=== PATIENT | male | born 1945 | race Caucasian/White ===

== ENCOUNTER → 2019-05-13 | Outpatient (CLI) | payer MEDICARE ==
[~2019-05-13] MED LIST: ALLOPURINOL300 MG PO; ASPIR 8181 MG PO; ATENOLOL-CHLOR1 EACH PO; FISH OIL PO; MULTIVITAMINS1 EAC7 PO; TRICOR145 MG PO
== END ==
LOC: SLEEP 20:38
PROVIDERS: ATTEND Internal Medicine
DX: G47.33 Obstructive sleep apnea (adult) (pediatric) (principal)
CPT/HCPCS: 95810

== ENCOUNTER 2024-03-05 00:19 | Inpatient (IN) | payer MEDICARE ==
[~2024-03-05] VITALS: Ht 170.2 cm; Wt 127.9 kg
[2024-03-05] VITALS (18 sets, daily range): BP systolic 98–139; BP diastolic 49–79; PULSE 41–108; RESP 12–21; TEMP 97.9–98.3; O2SAT 94–99
[2024-03-05] MEDS ORDERED: SODIUM CHLORIDE 0.9% 1000ML 1,000 ML ONE (01:32)
[2024-03-05] MEDS ORDERED: ELIQUIS5 MG PO (01:58)
[2024-03-05] MEDS ORDERED: LOSARTAN POTASS25 MG PO (02:01)
[2024-03-05] MEDS ORDERED: ATENOLOL-CHLOR1 EAC1 (02:01)
[2024-03-05] MEDS ORDERED: FENOFIBRATE145 MG PO (02:02)
[2024-03-05] MEDS ORDERED: JARDIANCE25 MG (02:03)
[2024-03-05] MEDS: SODIUM CHLORIDE 0.9% 1000ML 1,000 ML IV SCH (02:11)
[2024-03-05 06:31] LABS: BASOPHILS # (AUTO) 0.1 (0.0-0.1); BASOPHILS % 0.6 % (0.0-1.0); EOSINOPHILS # (AUTO) 0.1 (0.0-0.4); EOSINOPHILS % 0.7 % (0.0-6.0); HEMATOCRIT 43.2 % (38.2-49.6); HEMOGLOBIN 14.4 g/dL (14.0-18.0); LYMPHOCYTES # (AUTO) 1.9 (1.0-3.2); LYMPHOCYTES % 22.9 % (18.0-39.1); MEAN CORPUSCULAR HEMOGLOBIN 31.4 pg (28-32); MEAN CORPUSCULAR HGB CONC 33.3 g/dL (31-35); MEAN CORPUSCULAR VOLUME 94.1 fL (81-99); MONOCYTES # (AUTO) 0.9 (0.2-0.8); MONOCYTES % 10.6 % (4.4-11.3); NEUTROPHILS # (AUTO) 5.2 (2.1-6.9); NEUTROPHILS % 64.5 % (38.7-80.0); PLATELET COUNT 209 x10e3/uL (140-360); RED BLOOD COUNT 4.59 x10e6/uL (4.3-5.7); RED CELL DISTRIBUTION WIDTH 13.9 % (11.7-14.4); WHITE BLOOD COUNT 8.08 x10e3/uL (4.8-10.8)
[2024-03-05 06:54] LABS: CALCIUM IONIZED 1.2 mmol/L (1.09-1.30)
[2024-03-05 07:01] LABS: ALBUMIN 3.4 g/dL (3.5-5.0); ALBUMIN/GLOBULIN RATIO 1.2 (0.8-2.0); ANION GAP 17.3 mmol/L (8-16); BILIRUBIN,TOTAL 0.7 mg/dL (0.2-1.2); CALCIUM 9.3 mg/dL (8.4-10.2); CREATININE, SERUM 0.92 mg/dL (0.72-1.25); TOTAL PROTEIN 6.2 g/dL (6.5-8.1)
[2024-03-05 07:05] LABS: POTASSIUM 3.3 mmol/L (3.5-5.1)
[2024-03-05] MEDS ORDERED: HYDRALAZINE HCL 20 MG/ML VIAL IV PRN (11:15)
[2024-03-05] MEDS: GENTAMICIN SULFATE 40 MG/ML 2 ML VIAL ONE ×2 (16:22→16:23)
[2024-03-05] MEDS: SODIUM CHLORIDE 0.9% 250ML 250 ML ONE (16:23)
[2024-03-05] MEDS: SODIUM CHLORIDE 0.9% 500ML 500 ML ONE ×2 (16:23→16:24)
[2024-03-05] MEDS: IOPAMIDOL 610MG/1ML 300 MG/ML VIAL IV ONE (16:23)
[2024-03-05] MEDS: MIDAZOLAM HCL 2 MG/2 ML VIAL ONE (16:23)
[2024-03-05] MEDS: FENTANYL CITRATE/PF 100MCG/2 ML INJ ONE (16:23)
[2024-03-05] MEDS: SODIUM CHLORIDE 0.9% 1000ML 1,000 ML ONE (16:23)
[2024-03-05] MEDS: LIDOCAINE HCL 2% LOCAL 20 ML VIAL ONE (16:23)
[2024-03-05] MEDS: Vancomycin IV 1 GM VIAL ONE (16:23)
[2024-03-05] MEDS: DIPHENHYDRAMINE HCL INJ 50 MG/ML VIAL ONE (16:24)
[2024-03-06] VITALS (7 sets, daily range): BP systolic 110–166; BP diastolic 68–97; PULSE 57–94; RESP 15–22; TEMP 98; O2SAT 95–97
[2024-03-06 05:01] LABS: BASOPHILS # (AUTO) 0.1 (0.0-0.1); BASOPHILS % 0.7 % (0.0-1.0); EOSINOPHILS # (AUTO) 0.1 (0.0-0.4); EOSINOPHILS % 1.3 % (0.0-6.0); HEMOGLOBIN 14.1 g/dL (14.0-18.0); LYMPHOCYTES # (AUTO) 1.3 (1.0-3.2); LYMPHOCYTES % 12.8 % (18.0-39.1); MEAN CORPUSCULAR HEMOGLOBIN 32.7 pg (28-32); MEAN CORPUSCULAR HGB CONC 35.3 g/dL (31-35); MEAN CORPUSCULAR VOLUME 92.8 fL (81-99); MONOCYTES % 9.9 % (4.4-11.3); NEUTROPHILS # (AUTO) 7.7 (2.1-6.9); PLATELET COUNT 214 x10e3/uL (140-360); RED BLOOD COUNT 4.31 x10e6/uL (4.3-5.7); RED CELL DISTRIBUTION WIDTH 13.8 % (11.7-14.4); WHITE BLOOD COUNT 10.21 x10e3/uL (4.8-10.8)
[2024-03-06 05:30] LABS: ALBUMIN 3.4 g/dL (3.5-5.0); ALBUMIN/GLOBULIN RATIO 1.1 (0.8-2.0); ANION GAP 16.7 mmol/L (8-16); BILIRUBIN,TOTAL 0.9 mg/dL (0.2-1.2); CALCIUM 9.3 mg/dL (8.4-10.2); CREATININE, SERUM 0.86 mg/dL (0.72-1.25); MAGNESIUM 1.6 MG/DL (1.3-2.1); PHOSPHORUS 2.9 MG/DL (2.3-4.7); POTASSIUM 3.7 mmol/L (3.5-5.1); TOTAL PROTEIN 6.4 g/dL (6.5-8.1)
[2024-03-06 05:53] LABS: FREE THYROXINE INDEX 2.3162 (1.4-3.8); T3 UPTAKE 32.26 % (22.5-37.0); T4 (THYROXINE) 7.18 ug/dL (4.5-10.9); THYROID STIMULATING HORMONE 1.029 uIU/mL (0.350-4.940)
[2024-03-06] MEDS ORDERED: HYGROTON25 MG PO (14:44)
[2024-03-06] MEDS ORDERED: MINOCYCLINE HCL 50 MG CAP PO SCH (21:00)
== END 2024-03-06 16:32 | disposition home or self-care (01) | DRG 243 ==
LOC: ICU 00:51 → MED/SURG2 03-06 14:00
PROVIDERS: ADMIT Family Medicine Adult Medicine; ATTEND Family Medicine Adult Medicine
PROC: 0JH606Z Insertion of Pacemaker, Dual Chamber into Chest Subcutaneous Tissue and Fascia, Open Approach (ICD-10-PCS; principal; 2024-03-05)
PROC: 02H63JZ Insertion of Pacemaker Lead into Right Atrium, Percutaneous Approach (ICD-10-PCS; 2024-03-05)
PROC: 02HK3JZ Insertion of Pacemaker Lead into Right Ventricle, Percutaneous Approach (ICD-10-PCS; 2024-03-05)
DX: I49.5 Sick sinus syndrome (principal); I48.20 Chronic atrial fibrillation, unspecified; Z68.41 Body mass index [BMI] 40.0-44.9, adult; I10 Essential (primary) hypertension; E66.01 Morbid (severe) obesity due to excess calories; E78.00 Pure hypercholesterolemia, unspecified; I44.7 Left bundle-branch block, unspecified; E11.65 Type 2 diabetes mellitus with hyperglycemia; M10.9 Gout, unspecified; Z79.01 Long term (current) use of anticoagulants; Z79.82 Long term (current) use of aspirin; Z79.899 Other long term (current) drug therapy; Z79.84 Long term (current) use of oral hypoglycemic drugs
CPT/HCPCS: 33208; 36415; 80053; 83036; 83735; 84100; 84436; 84443; 84479; 84484; 85025; 93005; 93306; 99152; 99153; J1200; J1580; J2001; J2250; J7030; J7040; J7050